=== PATIENT | male | born 1975 | race Caucasian/White ===

== ENCOUNTER 2020-08-03 07:52 | Outpatient (CLI) | payer OTHER ==
[2020-08-03 16:09] LABS: Anion Gap 20 mmol/L (10-20); BUN (Urea Nitrogen) 19 mg/dL (8.9-20.6); Calc. Creatinine Clearance 0 mL/min (70-130); Carbon Dioxide 22 mmol/L (22-29); Chloride 104 mmol/L (98-107); Estimated GFR-MDRD 85; Glucose 99 mg/dL (70-105); Potassium 4.2 mmol/L (3.5-5.1); Sodium 142 mmol/L (136-145)
[2020-08-04 13:39] LABS: SARS-CoV-2 MS2 Positive; SARS-CoV-2 N Gene Negative; SARS-CoV-2 S Gene Negative; SARS-CoV-2 by NAA Not Detected (NotDetected); SARS-CoV-2 orf1ab Negative
== END 2020-08-03 07:53 | disposition home or self-care (01) ==
LOC: LABBT 07:52
PROVIDERS: ATTEND Neurological Surgery
DX: Z01.812 Encounter for preprocedural laboratory examination (principal); Z20.828 Contact with and (suspected) exposure to other viral communicable diseases; Q27.30 Arteriovenous malformation, site unspecified
CPT/HCPCS: 80048; 87635; U0003

== ENCOUNTER 2020-08-08 11:00 | Day surgery (SDC) | payer OTHER ==
[2020-08-07 13:17] VITALS: BMI 34.0
[~2020-08-08 11:00] MED LIST: Iopamidol 370 76% 100 ML VIAL ONE
[2020-08-08] MEDS ORDERED: Heparin 10,000 UNITS/ 10 ML VIAL ONE (11:35)
[2020-08-08] MEDS ORDERED: Lidocaine 1% (PF) 30 ML VIAL ONE (11:36)
[2020-08-08] MEDS ORDERED: Iopamidol 370 76% 100 ML VIAL ONE (14:14)
--- NOTE | 2020-09-06 15:49 | CCLSPC ---
ASSIST: No nursing assistant. INDICATION: History of headache. PROCEDURE: Cerebral angiography. ANESTHESIA: Local. TECHNIQUE: The patient was brought into the angiogram suite and placed on table in supine position. Both groins were prepped and draped in the usual sterile fashion. 1% lidocaine was used to inject the right femoral groin area. A 5-German micropuncture set was used to gain access to the right common femoral artery. Using a Seldinger technique, a needle was removed, and a 5-German was placed. A 5-German diagnostic catheter passed over a Confabb guidewire, was advanced into the aortic arch where the right common carotid artery was selectively catheterized and where an AP and lateral angiogram was performed. The catheter was then placed in the left common carotid artery where an AP and lateral angiogram was performed. Finally, the catheter was placed within the left vertebral artery where an AP and lateral angiogram was performed. All catheters were then removed. Hemostasis was maintained with manual compression. The procedure came to an end without any known complication. Cerebral angiography is performed from the right common carotid artery revealing normal vasculature of the internal and external carotid arteries. Cerebral angiography was performed from the contralateral common carotid artery with interpretation of the internal and external carotid arteries revealing evidence for normal filling vasculature. The patient does have a rather dominant distal anterior cerebral artery segment. Cerebral angiography was performed from the vertebral artery and reveals no evidence for aneurysm, AV fistula, or other abnormality. IMPRESSION: The patient underwent successful angiography. Outside of a very large dominant anterior cerebral artery, there is no evidence for dural arteriovenous fistula, arteriovenous malformation, or other abnormality. Job ID: [id number]
== END 2020-08-08 16:03 | disposition home or self-care (01) ==
LOC: CCL 11:00
PROVIDERS: ATTEND Neurological Surgery
PROC: 03HJ3DZ Insertion of Intraluminal Device into Left Common Carotid Artery, Percutaneous Approach (ICD-10-PCS; principal; 2020-08-08)
PROC: 03HH3DZ Insertion of Intraluminal Device into Right Common Carotid Artery, Percutaneous Approach (ICD-10-PCS; principal; 2020-08-08)
PROC: 03H Upper Arteries, Insertion (ICD-10-PCS; principal; 2020-08-08)
DX: Q28.2 Arteriovenous malformation of cerebral vessels (principal); R51.9 Headache, unspecified; Z87.820 Personal history of traumatic brain injury; Z79.1 Long term (current) use of non-steroidal anti-inflammatories (NSAID); Z79.899 Other long term (current) drug therapy; Z88.0 Allergy status to penicillin; Z98.1 Arthrodesis status
CPT/HCPCS: 36215; 36216; 36217; 36222; 36226; J1644; J2001; Q9967